=== PATIENT | male | born 1970 ===

== ENCOUNTER 2025-03-10 06:57 | Day surgery (SDC) | payer OTHER ==
[2025-03-07 10:23] LABS: HEMATOCRIT 46.8 % (39.0-48.0); HEMOGLOBIN 15.7 g/dL (13-16.00); MEAN CELL VOLUME 86.1 fL (80.0-100.00); MEAN CORPUSCULAR HEMOGLOBIN 28.8 pg (27.00-32.0); MEAN CORPUSCULAR HGB CONC 33.5 g/dl (32.0-36.0); PLATELET COUNT 217 K/uL (150-450); RED BLOOD COUNT 5.43 M/uL (4.00-6.00); RED CELL DISTRIBUTION WIDTH 13.7 % (11.5-14.5)
[2025-03-07 10:34] LABS: URINE APPEARANCE Clear; URINE BILIRRUBIN Negative (NEGATIVE); URINE BLOOD Negative; URINE COLOR Yellow; URINE GLUCOSE Negative (NEGATIVE); URINE KETONE Negative (NEGATIVE); URINE LEUKOCYTE Negative; URINE NITRATE Negative; URINE PROTEIN Negative (NEGATIVE); URINE UROBILINOGEN 0.2 E.U./dl
[2025-03-07 10:40] LABS: URINE BACTERIA 7.3 uL (0.0-1933)
[2025-03-07 11:01] LABS: URINE EPITHELIAL CELLS 0.4 uL (0.0-38.8); URINE RBC 0.2 uL (0.0-20.8); URINE WBC 1.5 uL (0.0-23.2)
[2025-03-07 11:12] LABS: INR 0.98; PARTIAL THROMBOPLASTIN TIME 29.2 SECONDS (22.0-34.0); PROTHROMBIN TIME 10.7 SECONDS (9.0-11.5)
[2025-03-07 11:36] LABS: CALCIUM 9.5 mg/dL (8.5-10.1); CREATININE SERUM 1.04 mg/dL (0.70-1.30); GFR 74.42; POTASSIUM 4.51 mEq/L (3.5-5.1)
[~2025-03-10 06:57] MED LIST: AMLODIPINE-OLM1 EAC3; BENICAR40 MG PO; HCTZ
[2025-03-10] MEDS ORDERED: CEFAZOLIN SODIUM 1,000 MG VIAL ONE (08:45)
[2025-03-10] MEDS ORDERED: BUPIVACAINE HCL/MPF 0.5% 30ML VIAL ONE ×2 (12:03→13:06)
[2025-03-10] MEDS ORDERED: KETOROLAC TROMETHAMINE 30 MG VIAL ONE (13:27)
[2025-03-10] MEDS ORDERED: SUGAMMADEX SODIUM 200 MG/2 ML VIAL IV ONE (13:27)
[2025-03-10] MEDS ORDERED: NEURONTIN300 MG PO (13:57)
[2025-03-10] MEDS ORDERED: MIRALAX17 GM PO (13:57)
[2025-03-10] MEDS ORDERED: TYLENOL ARTHRI650 MG PO (13:57)
[2025-03-10] MEDS ORDERED: KETO10TA2 PO (13:57)
[2025-03-10] MEDS ORDERED: TRAMADOL HCL50 MG PO (13:57)
== END 2025-03-10 16:30 | disposition home or self-care (01) ==
LOC: CIR.AMB 06:57
PROVIDERS: ATTEND Surgery
DX: K42.0 Umbilical hernia with obstruction, without gangrene (principal)
CPT/HCPCS: 49594; C1781